=== PATIENT | male | born 1975 | race Caucasian/White ===

== ENCOUNTER 2017-09-26 15:53 | Emergency (ER) | payer BC ==
[~2017-09-26] VITALS: Ht 175.2 cm; Wt 77.1 kg
[~2017-09-26 15:53] MED LIST: AMOXICILLIN500 MG PO; AUGMENTIN 875 M1 TAB PO; CORTISPORIN 1%-10 M1 OT; HYDROCODONE BIT1 T11 PO; IMITREX50 MG PO; KEFLEX500 MG PO; MOTRIN800 MG PO; NAPROSYN500 MG PO; NKHM; VICODIN 5/500 505 MG PO; ZOFRAN ODT4 MG SL
== END 2017-09-26 17:40 | disposition home or self-care (01) ==
LOC: ED 15:53
DX: S02.32XA Fracture of orbital floor, left side, initial encounter for closed fracture (principal); V86.99XA Unspecified occupant of other special all-terrain or other off-road motor vehicle injured in nontraffic accident, initial encounter; Y93.89 Activity, other specified; Y92.89 Other specified places as the place of occurrence of the external cause; Y99.8 Other external cause status

== ENCOUNTER 2018-11-08 17:15 | Emergency (ER) | payer SELFPAY ==
[~2018-11-08] VITALS: Ht 180.3 cm; Wt 77.1 kg
[2018-11-08] MEDS ORDERED: ANAPROX DS550 MG PO (17:42)
[2018-11-08] MEDS ORDERED: NORCO 5-325 TA1 EACH PO (17:42)
[2018-11-08] MEDS ORDERED: CLINDAMYCIN HC300 MG PO (17:42)
[2019-01-08] MEDS ORDERED: AUGMENTIN 875875 MG PO (14:44)
[2019-01-08] MEDS ORDERED: IBUPROFEN600 MG PO (14:44)
== END 2018-11-08 18:06 | disposition home or self-care (01) ==
LOC: ED 17:15
DX: K04.7 Periapical abscess without sinus (principal)

== ENCOUNTER → 2019-05-03 | Outpatient (CLI) | payer OTHER ==
[~2019-05-03] MED LIST changes: +ANAPROX DS550 MG PO; +AUGMENTIN 875875 MG PO; +CLINDAMYCIN HC300 MG PO; +IBUPROFEN600 MG PO; +NORCO 5-325 TA1 EACH PO
== END | disposition home or self-care (01) ==
LOC: RAD 15:36
DX: M25.531 Pain in right wrist (principal)